=== PATIENT | male | born 1965 | race African-American/Black ===

== ENCOUNTER 2016-12-18 12:32 | Emergency (ER) | payer OTHER ==
[~2016-12-18] VITALS: Ht 188 cm; Wt 111.0 kg
[~2016-12-18 12:32] MED LIST: ADVAIR 250/501 DISK IH; ALEVE220 MG PO; AMBIEN10 MG PO; ASPIRIN E.C.81 M1 PO; Advair HFA 115/21 IH; BAYER PLUS 500500 MG; BUDEPRION SR150 MG PO; BUSPIRONE HCL10 MG PO; CHLORPROMAZINE100 MG; CHLORPROMAZINE25 MG PO; CITALOPRAM HBR20 M1 G-TUBE; CLARITIN,ALAVAR10 MG PO; CLARITIN10 M3 PO; CLARITIN10 MG PO; COUMADIN,JANTO7.5 MG PO; COUMADIN,JANTOVE5 MG PO; CYCLOBENZAPRINE10 MG PO; Coumadin dosing per PO; DEPAKOTE250 MG PO; DEPAKOTE500 MG PO; DILANTIN BRAND100 MG PO; DILANTIN100 MG PO; DIVALPROEX SOD250 MG PO; DURAGESIC25 MCG TD; FLEXERIL10 MG PO; FLONASE16 G1 BOTH NARES; FLOVENT DISKUS1 DIS2; Flonase BOTH NARES; GABAPENTIN600 MG PO; GABAPENTIN800 MG PO; HYDROCHLOROTHIA25 MG PO; Hydrodiuril,Oretic,E PO; KLONOPIN0.5 M1 PO; LIDODERM 5% P1 PATCH TD; LOPRESSOR50 MG PO; LORAZEPAM1 MG PO; LORTAB 7.5-5001 EACH PO; Lopressor PO; NASONEX17 GM NS; NORTRIPTYLINE H75 MG PO; OMEPRAZOLE20 MG PO; OXCARBAZEPINE300 MG PO; OXCARBAZEPINE600 MG PO; OXYCODONE HCL5 MG; OXYCODONE15 MG PO; OxyCODONE PO; PERI-COLACE TA1 EACH; PERI-COLACE TA1 EACH PO; PROTONIX40 MG PO; RANITIDINE HCL150 M1 PO; REQUIP1 MG PO; SENOKOT S,PE1 TABLET PO; ST JOSEPH ASPIR81 M2 PO; THERAGRAN1 TABLET PO; THORAZINE200 MG PO; TOPAMAX100 MG PO; TOPROL XL100 MG PO; TOPROL XL50 MG PO; TRAMADOL HCL100 MG PO; TRAMADOL HCL50 MG; TRAZODONE HCL100 MG PO; TYLENOL ARTHRI650 M2 PO; ULTRAM50 MG PO; VENTOLIN HFA18 GM; WELLBUTRIN SR200 MG PO; celeXA PO
[2016-12-18 13:12] LABS: HEMATOCRIT 42.8 % (38.0-50.0); MCH 27.5 PG (29.0-34.0); MCHC 31.3 G/DL (30.0-36.0); MCV 87.7 FL (86-99); MEAN PLAT.VOLUME 9.4 uM^3 (9.0-12.4); PLATELET COUNT 203 K/uL (156-360); RBC DIS.WIDTH-CV 14.6 % (11.8-14.6); RBC DIS.WIDTH-SD 47.2 % (39-53); RED BLOOD COUNT 4.88 M/uL (4.00-5.50); WHITE BLOOD COUNT 6.3 K/uL (4.1-10.2)
[2016-12-18 13:20] LABS: CHLORIDE 109 mEq/L (99-109); POTASSIUM 3.3 mEq/L (3.7-5.4); SODIUM 141 mEq/L (136-147)
[2016-12-18 13:23] LABS: GLUCOSE 96 mg/dL (70-99)
[2016-12-18 13:24] LABS: ANION GAP 8 MEQ/L (2-14); TOTAL BILIRUBIN 0.5 mg/dL (0.0-1.0)
[2016-12-18 13:26] LABS: ALKALINE PHOSPHATASE 58 IU/L (3-129); GFR ESTIMATE (CALCULATED) 55 mL/min/
[2016-12-18 13:27] LABS: UREA NITROGEN (BUN) 9 mg/dL (9-23)
[2016-12-18 13:29] LABS: CREATINE KINASE 287 IU/L (1-294); TOTAL CK 287 IU/L (1-294)
[2016-12-18 13:35] LABS: CK-MB 10.9 ng/mL (0.0-4.9)
[2016-12-18] MEDS ORDERED: DEPAKOTE500 MG PO (14:59)
[2016-12-18 15:15] VITALS: BP 109/67
[2016-12-24] MEDS ORDERED: LATUDA120 MG PO (09:53)
[2016-12-24] MEDS ORDERED: TAMSULOSIN HCL0.4 MG PO (09:54)
[2016-12-24] MEDS ORDERED: OMEPRAZOLE20 MG PO (09:55)
[2016-12-24] MEDS ORDERED: OXCARBAZEPINE600 MG PO (09:55)
[2016-12-24] MEDS ORDERED: RELAFEN750 MG PO (09:55)
[2016-12-24] MEDS ORDERED: LODINE400 MG PO (09:58)
[2016-12-24] MEDS ORDERED: HYDROCHLOROTHIA25 MG PO (09:59)
[2016-12-24] MEDS ORDERED: METOPROLOL TART75 MG PO (09:59)
[2016-12-24] MEDS ORDERED: FLEXERIL10 MG PO (10:00)
[2016-12-24] MEDS ORDERED: CLARITIN,ALAVAR10 MG PO (10:00)
[2016-12-24] MEDS ORDERED: K-DUR20 MEQ PO (13:56)
== END 2016-12-18 15:15 | disposition home or self-care (01) ==
LOC: EME 12:32
PROVIDERS: Emergency Medicine
DX: G40.909 Epilepsy, unspecified, not intractable, without status epilepticus (principal); E11.9 Type 2 diabetes mellitus without complications; I10 Essential (primary) hypertension; K21.9 Gastro-esophageal reflux disease without esophagitis; G89.29 Other chronic pain; Z98.1 Arthrodesis status; Z79.82 Long term (current) use of aspirin
CPT/HCPCS: 80053; 80164; 82550; 82553; 85027; 93005; 99281; 99285; J7030

== ENCOUNTER 2017-01-16 06:36 | Emergency (ER) | payer OTHER ==
[~2017-01-16] VITALS: Ht 188 cm; Wt 125.9 kg
[~2017-01-16 06:36] MED LIST changes: +K-DUR20 MEQ PO; +LATUDA120 MG PO; +LODINE400 MG PO; +METOPROLOL TART75 MG PO; +RELAFEN750 MG PO; +TAMSULOSIN HCL0.4 MG PO
[2017-01-16] MEDS ORDERED: DESYREL100 MG PO (06:55)
[2017-01-16] MEDS ORDERED: TRAZODONE HCL100 MG PO (07:08)
[2017-01-16] MEDS ORDERED: OXCARBAZEPINE600 MG PO (07:08)
[2017-01-16] MEDS ORDERED: WELLBUTRIN SR200 MG PO (07:08)
[2017-01-16] MEDS ORDERED: LATUDA120 MG PO (07:08)
[2017-01-16 07:31] VITALS: BP 150/92
== END 2017-01-16 07:32 | disposition home or self-care (01) ==
LOC: EME 06:36
DX: F32.89 Other specified depressive episodes (principal); Z76.0 Encounter for issue of repeat prescription; Z91.19 Patient's noncompliance with other medical treatment and regimen; I10 Essential (primary) hypertension; J45.909 Unspecified asthma, uncomplicated; Z91.040 Latex allergy status; Z88.1 Allergy status to other antibiotic agents; Z88.0 Allergy status to penicillin; Z91.09 Other allergy status, other than to drugs and biological substances
CPT/HCPCS: 99281; 99284

== ENCOUNTER 2017-01-26 23:23 | Emergency (ER) | payer OTHER ==
[~2017-01-26] VITALS: Ht 188 cm; Wt 128.0 kg
[~2017-01-26 23:23] MED LIST changes: +DESYREL100 MG PO
[2017-01-27 00:44] VITALS: BP 168/99
== END 2017-01-27 00:45 | disposition home or self-care (01) ==
LOC: EME 23:23
DX: S43.51XA Sprain of right acromioclavicular joint, initial encounter (principal); V43.63XA Car passenger injured in collision with pick-up truck in traffic accident, initial encounter
CPT/HCPCS: 73030; 99281; 99283

== ENCOUNTER 2017-02-23 17:31 | Emergency (ER) | payer OTHER ==
[~2017-02-23] VITALS: Ht 188 cm; Wt 135.8 kg
[2017-02-23 18:33] LABS: HEMATOCRIT 42.8 % (38.0-50.0); MCH 27.8 PG (29.0-34.0); MEAN PLAT.VOLUME 10.8 uM^3 (9.0-12.4); PLATELET COUNT 186 K/uL (156-360); RBC DIS.WIDTH-SD 50.7 % (39-53); RED BLOOD COUNT 4.92 M/uL (4.00-5.50); WHITE BLOOD COUNT 7.5 K/uL (4.1-10.2)
[2017-02-23 18:42] LABS: CHLORIDE 98 mEq/L (99-109); POTASSIUM 4.7 mEq/L (3.7-5.4); SODIUM 136 mEq/L (136-147)
[2017-02-23 18:44] LABS: GLUCOSE 74 mg/dL (70-99)
[2017-02-23 18:45] LABS: ANION GAP 11 MEQ/L (2-14)
[2017-02-23 18:48] LABS: GFR ESTIMATE (CALCULATED) > 59 mL/min/
[2017-02-23 18:49] LABS: UREA NITROGEN (BUN) 13 mg/dL (9-23)
[2017-02-23 18:55] LABS: TROP-I INTERPRETATION NEGATIVE; TROPONIN-I < 0.01 ng/mL (0.0-0.30)
[2017-02-23 20:53] VITALS: BP 137/92
== END 2017-02-23 20:54 | disposition home or self-care (01) ==
LOC: EME 17:31
DX: R07.89 Other chest pain (principal); H53.8 Other visual disturbances; M79.604 Pain in right leg; M79.605 Pain in left leg; T39.395A Adverse effect of other nonsteroidal anti-inflammatory drugs [NSAID], initial encounter; I10 Essential (primary) hypertension; J45.909 Unspecified asthma, uncomplicated
CPT/HCPCS: 71020; 80048; 84484; 85027; 93005; 99281; 99284

== ENCOUNTER 2017-05-22 13:16 | Emergency (ER) | payer OTHER ==
[~2017-05-22] VITALS: Ht 188 cm; Wt 134.1 kg
[2017-05-22 14:16] LABS: EOSINOPHIL (%) 0.4 % (0-5); EOSINOPHIL COUNT 0.1 K/uL (0-0.3); HEMATOCRIT 42.8 % (38.0-50.0); IMMATURE GRANULOCYTE (%) 0.4 % (0.0-0.7); IMMATURE GRANULOCYTE COUNT 0.1 K/uL; INSTRUMENT ABS NEUTROPHIL CT 8.5 K/uL; LYMPHOCYTE COUNT 3.2 K/uL (1.0-2.8); MCHC 32.7 G/DL (30.0-36.0); MCV 88.6 FL (86-99); MEAN PLAT.VOLUME 10.2 uM^3 (9.0-12.4); MONOCYTE (%) 11.2 % (3-12); MONOCYTE COUNT 1.5 K/uL (0-0.8); NEUTROPHIL (%) 63.9 % (45-76); NEUTROPHIL COUNT 8.5 K/uL (1.8-6.4); PLATELET COUNT 186 K/uL (156-360); RBC DIS.WIDTH-CV 14.5 % (11.8-14.6); RBC DIS.WIDTH-SD 46.2 % (39-53); RED BLOOD COUNT 4.83 M/uL (4.00-5.50); WHITE BLOOD COUNT 13.2 K/uL (4.1-10.2)
[2017-05-22 14:29] LABS: CHLORIDE 103 mEq/L (99-109); POTASSIUM 3.7 mEq/L (3.7-5.4); SODIUM 139 mEq/L (136-147)
[2017-05-22 14:31] LABS: GLUCOSE 86 mg/dL (70-99)
[2017-05-22 14:32] LABS: ANION GAP 12 MEQ/L (2-14)
[2017-05-22 14:34] LABS: GFR ESTIMATE (CALCULATED) 37 mL/min/
[2017-05-22 14:35] LABS: UREA NITROGEN (BUN) 29 mg/dL (9-23)
[2017-05-22 14:37] LABS: TROP-I INTERPRETATION NEGATIVE; TROPONIN-I 0.02 ng/mL (0.0-0.30)
[2017-05-22 16:07] LABS: ADD MIUA? YES; BILIRUBIN NEGATIVE; BLOOD NEGATIVE; COLOR YELLOW ((YELLOW)); GLUCOSE (STRIP) NEGATIVE; KETONES 5; LEUKOCYTES NEGATIVE; NITRITE NEGATIVE; PROTEIN (STRIP) NEGATIVE; SPECIFIC GRAVITY 1.016 (1.000-1.030); UROBILINOGEN 0.2 MG/DL (0.2-1.0)
[2017-05-22 16:17] LABS: BACTERIA RARE /HPF; EPITHELIAL CELLS RARE /HPF; HYALINE CASTS 40-50 /LPF; MUCUS 1+ /LPF; RED BLOOD CELLS 0-5 /HPF (0-5); UCUL ADDED? NO; WHITE BLOOD CELLS 0-5 /HPF (0-5)
[2017-05-22 16:22] LABS: ADD MEDTOX COMMENT Y; AMPHETAMINE NEGATIVE (500 ng/mL); BARBITURATES NEGATIVE (200 ng/mL); BENZODIAZEPINES NEGATIVE (150 ng/mL); COCAINE PRESUMPTIVE POSITIVE (150 ng/mL); INTERNAL CONTROLS VALID? YES; METHADONE NEGATIVE (200 ng/mL); METHAMPHETAMINE NEGATIVE (500 ng/mL); OPIATES (MORPHINE) NEGATIVE (100 ng/mL); OXYCODONE NEGATIVE (100 ng/mL); PHENCYCLIDINE NEGATIVE (25 ng/mL); PROPOXYPHENE NEGATIVE (300 ng/mL); THC CANNABINOIDS NEGATIVE (50 ng/mL); TRICYCLIC ANTIDEPRESSANTS NEGATIVE (300 ng/mL)
[2017-05-22 18:23] VITALS: BP 115/78
== END 2017-05-22 18:26 | disposition home or self-care (01) ==
LOC: EME 13:16
PROVIDERS: Emergency Medicine
DX: R55 Syncope and collapse (principal); R19.7 Diarrhea, unspecified; R06.02 Shortness of breath; R11.0 Nausea; R51 Headache; I10 Essential (primary) hypertension; F14.90 Cocaine use, unspecified, uncomplicated
CPT/HCPCS: 80048; 81003; 84484; 84999; 85025; 93005; 99281; 99285; J7030

== ENCOUNTER 2017-08-06 17:06 | Inpatient (IN) | payer OTHER ==
[~2017-08-06] VITALS: Ht 182.9 cm; Wt 149.6 kg
[2017-08-06 17:38] LABS: EOSINOPHIL (%) 0.3 % (0-5); EOSINOPHIL COUNT 0.1 K/uL (0-0.3); HEMATOCRIT 42.9 % (38.0-50.0); IMMATURE GRANULOCYTE (%) 0.6 % (0.0-0.7); IMMATURE GRANULOCYTE COUNT 0.1 K/uL; INSTRUMENT ABS NEUTROPHIL CT 9.7 K/uL; LYMPHOCYTE COUNT 3.4 K/uL (1.0-2.8); MCH 29.6 PG (29.0-34.0); MCHC 30.5 G/DL (30.0-36.0); MONOCYTE (%) 12.3 % (3-12); MONOCYTE COUNT 1.9 K/uL (0-0.8); NEUTROPHIL (%) 64.3 % (45-76); NEUTROPHIL COUNT 9.7 K/uL (1.8-6.4); NRBC (%) 0.1 /100 WBC (0-0); PLATELET COUNT 188 K/uL (156-360); RBC DIS.WIDTH-CV 15.3 % (11.8-14.6); RBC DIS.WIDTH-SD 54.7 % (39-53); RED BLOOD COUNT 4.43 M/uL (4.00-5.50); WHITE BLOOD COUNT 15.1 K/uL (4.1-10.2)
[2017-08-06 17:40] LABS: MCV 96.8 FL (86-99)
[2017-08-06 17:54] LABS: CHLORIDE 104 mEq/L (99-109); POTASSIUM 4.8 mEq/L (3.7-5.4); SODIUM 135 mEq/L (136-147)
[2017-08-06 17:57] LABS: GLUCOSE 91 mg/dL (70-99)
[2017-08-06 17:58] LABS: ANION GAP 17 MEQ/L (2-14); TOTAL BILIRUBIN 0.7 mg/dL (0.0-1.0)
[2017-08-06 17:59] LABS: SERUM ETHYL ALCOHOL < 10 mg/dL
[2017-08-06 18:00] LABS: GFR ESTIMATE (CALCULATED) 19 mL/min/
[2017-08-06 18:01] LABS: ALKALINE PHOSPHATASE 65 IU/L (3-129)
[2017-08-06 18:03] LABS: SALICYLATE < 5.0 MG/DL (15-30)
[2017-08-06 18:26] LABS: UREA NITROGEN (BUN) 22 mg/dL (9-23)
[2017-08-06 19:13] LABS: ADD MIUA? NO; BILIRUBIN NEGATIVE; BLOOD NEGATIVE; COLOR YELLOW ((YELLOW)); GLUCOSE (STRIP) NEGATIVE; KETONES NEGATIVE; LEUKOCYTES NEGATIVE; NITRITE NEGATIVE; PROTEIN (STRIP) NEGATIVE; SPECIFIC GRAVITY 1.015 (1.000-1.030)
[2017-08-06 19:23] LABS: AMPHETAMINE NEGATIVE (500 ng/mL); BARBITURATES NEGATIVE (200 ng/mL); BENZODIAZEPINES NEGATIVE (150 ng/mL); COCAINE NEGATIVE (150 ng/mL); INTERNAL CONTROLS VALID? YES; METHADONE NEGATIVE (200 ng/mL); METHAMPHETAMINE NEGATIVE (500 ng/mL); OPIATES (MORPHINE) NEGATIVE (100 ng/mL); OXYCODONE NEGATIVE (100 ng/mL); PHENCYCLIDINE NEGATIVE (25 ng/mL); PROPOXYPHENE NEGATIVE (300 ng/mL); THC CANNABINOIDS NEGATIVE (50 ng/mL); TRICYCLIC ANTIDEPRESSANTS NEGATIVE (300 ng/mL)
[2017-08-07] VITALS (7 sets, daily range): BP systolic 97–156; BP diastolic 57–91
[2017-08-07 06:08] LABS: HEMATOCRIT 37.7 % (38.0-50.0); MCH 29.9 PG (29.0-34.0); MCHC 30.8 G/DL (30.0-36.0); MCV 97.2 FL (86-99); MEAN PLAT.VOLUME 10.2 uM^3 (9.0-12.4); PLATELET COUNT 151 K/uL (156-360); RBC DIS.WIDTH-CV 15.5 % (11.8-14.6); RBC DIS.WIDTH-SD 55.1 % (39-53); RED BLOOD COUNT 3.88 M/uL (4.00-5.50); WHITE BLOOD COUNT 11.8 K/uL (4.1-10.2)
[2017-08-07 06:22] LABS: ANION GAP 9 MEQ/L (2-14); CHLORIDE 103 MEQ/L (99-109); GLUCOSE 95 mg/dL (70-99); POTASSIUM 4.6 MEQ/L (3.7-5.4); SAMPLE HEMOLYSIS CHECK 0; SAMPLE ICTERIC CHECK 0; SAMPLE LIPEMIA CHECK 0; SODIUM 137 MEQ/L (136-147); UREA NITROGEN (BUN) 28 mg/dL (9-23)
[2017-08-07 06:47] LABS: GFR ESTIMATE (CALCULATED) 15 mL/min/
[2017-08-07 08:12] LABS: BASE EXCESS -1.4 mEq/L (-3 to +3); BICARBONATE 26.5 mEq/L (22-26); CARBOXY HGB 2.8 % (0-5); COMMENTS - BLOOD GASES A+C; DEVICE NC; O2 FLOW 2 L/MIN; PCO2 59 mm Hg (35-45); PO2 91 mm Hg (80-100); SITE LR; TOTAL RESP RATE 12 resp/min; pH 7.26 (7.35-7.45)
[2017-08-07 09:06] LABS: MAGNESIUM 2.3 mg/dl (1.3-2.7)
[2017-08-07] MEDS ORDERED: LITHOBID300 MG PO (09:35)
[2017-08-07] MEDS ORDERED: TRILEPTAL600 MG PO (09:36)
[2017-08-07] MEDS ORDERED: AMBIEN10 MG PO (09:36)
[2017-08-07] MEDS ORDERED: WELLBUTRIN XL150 MG PO (09:37)
[2017-08-07] MEDS ORDERED: LATUDA120 MG PO (09:38)
[2017-08-07 10:44] LABS: BASE EXCESS -2.8 mEq/L (-3 to +3); CARBOXY HGB 2.9 % (0-5); METHEMOGLOBIN 1.5 % (0-1.5); PCO2 57 mm Hg (35-45)
[2017-08-07 10:47] LABS: COMMENTS - BLOOD GASES A+C+; PO2 57 mm Hg (80-100); SITE RR
[2017-08-07 10:48] LABS: DEVICE NC; O2 FLOW 2 L/MIN; TOTAL RESP RATE 12 resp/min; pH 7.25 (7.35-7.45)
[2017-08-08 04:13] VITALS: BP 131/92
[2017-08-08 05:59] LABS: EOSINOPHIL (%) 1.3 % (0-5); EOSINOPHIL COUNT 0.1 K/uL (0-0.3); HEMATOCRIT 37.1 % (38.0-50.0); IMMATURE GRANULOCYTE (%) 0.5 % (0.0-0.7); INSTRUMENT ABS NEUTROPHIL CT 4.8 K/uL; LYMPHOCYTE COUNT 2.1 K/uL (1.0-2.8); MCH 29.3 PG (29.0-34.0); MCV 94.6 FL (86-99); MEAN PLAT.VOLUME 10.1 uM^3 (9.0-12.4); MONOCYTE (%) 15.5 % (3-12); MONOCYTE COUNT 1.3 K/uL (0-0.8); NEUTROPHIL (%) 57.3 % (45-76); NEUTROPHIL COUNT 4.8 K/uL (1.8-6.4); NRBC (%) 0.2 /100 WBC (0-0); PLATELET COUNT 125 K/uL (156-360); RBC DIS.WIDTH-CV 14.6 % (11.8-14.6); RBC DIS.WIDTH-SD 50.7 % (39-53); RED BLOOD COUNT 3.92 M/uL (4.00-5.50); WHITE BLOOD COUNT 8.5 K/uL (4.1-10.2)
[2017-08-08 06:09] VITALS: BP 131/92
[2017-08-08 06:25] LABS: ANION GAP 10 MEQ/L (2-14); CHLORIDE 103 MEQ/L (99-109); GFR ESTIMATE (CALCULATED) 26 mL/min/; GLUCOSE 94 mg/dL (70-99); POTASSIUM 4.2 MEQ/L (3.7-5.4); SAMPLE HEMOLYSIS CHECK 0; SAMPLE ICTERIC CHECK 0; SAMPLE LIPEMIA CHECK 0; SODIUM 140 MEQ/L (136-147); UREA NITROGEN (BUN) 20 mg/dL (9-23)
[2017-08-08 07:57] VITALS: BP 140/70
[2017-08-08 09:51] LABS: HBSG INDEX 0.15
[2017-08-08 09:52] LABS: AHBS INDEX 548.21
[2017-08-08 09:54] LABS: HEPATITIS B SURFACE ANTIBODY REACTIVE
[2017-08-08 10:13] LABS: ANTI-HEPATITIS B CORE (TOTAL) REACTIVE; HBCT INDEX 8.04
[2017-08-08] MEDS ORDERED: CYCLOBENZAPRINE10 MG PO (11:25)
[2017-08-08] MEDS ORDERED: LOPRESSOR50 MG PO (11:26)
[2017-08-08] MEDS ORDERED: HYDROCHLOROTHIA25 MG PO (11:26)
[2017-08-08] MEDS ORDERED: ENALAPRIL MALEA10 MG PO (11:27)
[2017-08-08] MEDS ORDERED: GABAPENTIN800 MG PO (11:28)
[2017-08-08] MEDS ORDERED: DEPAKOTE500 MG PO (11:28)
[2017-08-08] MEDS ORDERED: LODINE400 MG PO (11:29)
[2017-08-08] MEDS ORDERED: MORPHINE SULFAT15 M1 PO (11:29)
[2017-08-08] MEDS ORDERED: BENZTROPINE MESY1 MG PO (11:30)
[2017-08-08] MEDS ORDERED: MIRALAX17 GM PO (11:30)
[2017-08-08] MEDS ORDERED: SYMBICORT60 INHALAT IH (11:31)
[2017-08-08] MEDS ORDERED: VENTOLIN HFA18 GM IH (11:31)
[2017-08-08] MEDS ORDERED: ZUBSOLV 1.4-0.1 EACH SL (11:33)
[2017-08-08 11:38] LABS: ANTI-HEPATITIS B CORE (IGM) Nonreactive
[2017-08-08 11:43] VITALS: BP 137/74
[2017-08-08 16:40] VITALS: BP 160/70
[2017-08-08 20:15] VITALS: BP 160/98
[2017-08-09 00:13] VITALS: BP 167/97
[2017-08-09 04:14] VITALS: BP 167/92
[2017-08-09 05:41] VITALS: BP 167/92
[2017-08-09 06:10] LABS: EOSINOPHIL COUNT 0.1 K/uL (0-0.3); HEMATOCRIT 34.1 % (38.0-50.0); IMMATURE GRANULOCYTE (%) 0.3 % (0.0-0.7); INSTRUMENT ABS NEUTROPHIL CT 3.3 K/uL; LYMPHOCYTE COUNT 2.2 K/uL (1.0-2.8); MCH 29.8 PG (29.0-34.0); MCHC 32.3 G/DL (30.0-36.0); MCV 92.4 FL (86-99); MEAN PLAT.VOLUME 10.3 uM^3 (9.0-12.4); MONOCYTE (%) 15.5 % (3-12); NEUTROPHIL (%) 49.3 % (45-76); NEUTROPHIL COUNT 3.3 K/uL (1.8-6.4); PLATELET COUNT 123 K/uL (156-360); RBC DIS.WIDTH-CV 14.3 % (11.8-14.6); RBC DIS.WIDTH-SD 48.4 % (39-53); RED BLOOD COUNT 3.69 M/uL (4.00-5.50); WHITE BLOOD COUNT 6.7 K/uL (4.1-10.2)
[2017-08-09 06:36] LABS: ANION GAP 7 MEQ/L (2-14); CHLORIDE 104 MEQ/L (99-109); GFR ESTIMATE (CALCULATED) 55 mL/min/; GLUCOSE 104 mg/dL (70-99); POTASSIUM 3.6 MEQ/L (3.7-5.4); SAMPLE HEMOLYSIS CHECK 0; SAMPLE ICTERIC CHECK 0; SAMPLE LIPEMIA CHECK 0; SODIUM 141 MEQ/L (136-147); UREA NITROGEN (BUN) 11 mg/dL (9-23)
[2017-08-09 06:59] VITALS: BP 139/84
[2017-08-09 15:12] VITALS: BP 156/97
[2017-08-09 23:24] VITALS: BP 129/89
[2017-08-10 06:01] LABS: EOSINOPHIL (%) 1.7 % (0-5); EOSINOPHIL COUNT 0.1 K/uL (0-0.3); HEMATOCRIT 33.5 % (38.0-50.0); IMMATURE GRANULOCYTE (%) 0.3 % (0.0-0.7); INSTRUMENT ABS NEUTROPHIL CT 3.6 K/uL; LYMPHOCYTE COUNT 2.4 K/uL (1.0-2.8); MCH 29.9 PG (29.0-34.0); MCHC 32.5 G/DL (30.0-36.0); MEAN PLAT.VOLUME 10.4 uM^3 (9.0-12.4); MONOCYTE (%) 11.1 % (3-12); MONOCYTE COUNT 0.8 K/uL (0-0.8); NEUTROPHIL (%) 52.5 % (45-76); NEUTROPHIL COUNT 3.6 K/uL (1.8-6.4); PLATELET COUNT 132 K/uL (156-360); RBC DIS.WIDTH-CV 14.4 % (11.8-14.6); RBC DIS.WIDTH-SD 48.4 % (39-53); RED BLOOD COUNT 3.64 M/uL (4.00-5.50); WHITE BLOOD COUNT 6.9 K/uL (4.1-10.2)
[2017-08-10 06:26] LABS: ANION GAP 8 MEQ/L (2-14); CHLORIDE 106 MEQ/L (99-109); GFR ESTIMATE (CALCULATED) > 59 mL/min/; GLUCOSE 100 mg/dL (70-99); POTASSIUM 3.8 MEQ/L (3.7-5.4); SAMPLE HEMOLYSIS CHECK 0; SAMPLE ICTERIC CHECK 0; SAMPLE LIPEMIA CHECK 0; SODIUM 141 MEQ/L (136-147); UREA NITROGEN (BUN) 7 mg/dL (9-23)
[2017-08-10 06:48] VITALS: BP 152/91
[2017-08-10 08:38] LABS: ALKALINE PHOSPHATASE 43 IU/L (3-129); DIRECT BILIRUBIN 0.1 mg/dL (0.0-0.3); TOTAL BILIRUBIN 0.5 MG/DL (0.0-1.0)
[2017-08-10 15:30] VITALS: BP 150/82
[2017-08-10 23:27] VITALS: BP 156/90
[2017-08-11 05:42] LABS: EOSINOPHIL (%) 1.8 % (0-5); EOSINOPHIL COUNT 0.1 K/uL (0-0.3); HEMATOCRIT 33.8 % (38.0-50.0); IMMATURE GRANULOCYTE (%) 0.3 % (0.0-0.7); INSTRUMENT ABS NEUTROPHIL CT 3.7 K/uL; LYMPHOCYTE COUNT 2.2 K/uL (1.0-2.8); MCHC 33.1 G/DL (30.0-36.0); MCV 90.6 FL (86-99); MEAN PLAT.VOLUME 9.8 uM^3 (9.0-12.4); MONOCYTE (%) 11.6 % (3-12); MONOCYTE COUNT 0.8 K/uL (0-0.8); NEUTROPHIL (%) 54.2 % (45-76); NEUTROPHIL COUNT 3.7 K/uL (1.8-6.4); PLATELET COUNT 132 K/uL (156-360); RBC DIS.WIDTH-CV 14.2 % (11.8-14.6); RBC DIS.WIDTH-SD 46.7 % (39-53); RED BLOOD COUNT 3.73 M/uL (4.00-5.50); WHITE BLOOD COUNT 6.8 K/uL (4.1-10.2)
[2017-08-11 06:30] LABS: ANION GAP 8 MEQ/L (2-14); CHLORIDE 104 MEQ/L (99-109); GFR ESTIMATE (CALCULATED) > 59 mL/min/; GLUCOSE 84 mg/dL (70-99); POTASSIUM 3.7 MEQ/L (3.7-5.4); SAMPLE HEMOLYSIS CHECK 0; SAMPLE ICTERIC CHECK 0; SAMPLE LIPEMIA CHECK 0; SODIUM 139 MEQ/L (136-147); UREA NITROGEN (BUN) 9 mg/dL (9-23)
[2017-08-11 07:50] VITALS: BP 138/74
== END 2017-08-11 11:40 | disposition home or self-care (01) | DRG 682 ==
LOC: EME 17:06 → 5EAST 22:41 → EDOF 22:41 → ENRESERV 22:43 → 5EAST 08-07 01:08 → ENPENDDIS 08-11 → 5EAST 08-11 11:40 → EDPENDDISTM 08-11 11:40
PROVIDERS: Emergency Medicine; Hospitalist; Internal Medicine; Internal Medicine Nephrology
PROC: 02HV33Z Insertion of Infusion Device into Superior Vena Cava, Percutaneous Approach (ICD-10-PCS; principal; 2017-08-07)
PROC: 5A1D70Z Performance of Urinary Filtration, Intermittent, Less than 6 Hours Per Day (ICD-10-PCS; 2017-08-07)
DX: N17.9 Acute kidney failure, unspecified (principal); G93.41 Metabolic encephalopathy; G47.33 Obstructive sleep apnea (adult) (pediatric); G40.909 Epilepsy, unspecified, not intractable, without status epilepticus; E66.9 Obesity, unspecified; Z68.41 Body mass index [BMI] 40.0-44.9, adult; E87.2 Acidosis; F31.9 Bipolar disorder, unspecified; I10 Essential (primary) hypertension; I95.9 Hypotension, unspecified; R06.89 Other abnormalities of breathing; R09.02 Hypoxemia; E83.39 Other disorders of phosphorus metabolism; K21.9 Gastro-esophageal reflux disease without esophagitis
CPT/HCPCS: 36415; 36600; 70450; 71010; 76770; 80048; 80053; 80069; 80076; 80164; 80178; 81003; 82140; 82803; 83605; 83735; 84100; 85025; 85027; 86704; 86705; 86706; 86803; 87040; 87340; 94640; 94640 76; 94660; 94799; 99202; 99281; 99285; C1751; C1752; G0480; J1644; J2405; J7030; J7040; J7042; S0028

== ENCOUNTER 2017-11-12 09:37 | Emergency (ER) | payer OTHER ==
[~2017-11-12] VITALS: Ht 188 cm; Wt 124.5 kg
[~2017-11-12 09:37] MED LIST changes: +BENZTROPINE MESY1 MG PO; +ENALAPRIL MALEA10 MG PO; +LITHOBID300 MG PO; +MIRALAX17 GM PO; +MORPHINE SULFAT15 M1 PO; +SYMBICORT60 INHALAT IH; +TRILEPTAL600 MG PO; +VENTOLIN HFA18 GM IH; +WELLBUTRIN XL150 MG PO; +ZUBSOLV 1.4-0.1 EACH SL
[2017-11-12] MEDS ORDERED: SENNA8.6 MG PO (10:22)
[2017-11-12] MEDS ORDERED: COLACE100 MG PO (10:22)
[2017-11-12] MEDS ORDERED: DULCOLAX10 MG PR (10:22)
[2017-11-12 10:39] VITALS: BP 121/76
== END 2017-11-12 10:43 | disposition home or self-care (01) ==
LOC: EME 09:37
DX: K59.03 Drug induced constipation (principal); T40.2X5A Adverse effect of other opioids, initial encounter; G89.29 Other chronic pain; Z79.891 Long term (current) use of opiate analgesic; I10 Essential (primary) hypertension; J45.909 Unspecified asthma, uncomplicated
CPT/HCPCS: 99281; 99284

== ENCOUNTER 2017-11-14 10:31 | Emergency (ER) | payer OTHER ==
[~2017-11-14] VITALS: Ht 188 cm; Wt 119.6 kg
[~2017-11-14 10:31] MED LIST changes: +COLACE100 MG PO; +DULCOLAX10 MG PR; +SENNA8.6 MG PO
[2017-11-14 13:13] LABS: BASOPHIL (%) 0.3 % (0-1); EOSINOPHIL (%) 0.5 % (0-5); HEMATOCRIT 37.3 % (38.0-50.0); HEMOGLOBIN 12.5 G/DL (12.5-16.6); IMMATURE GRANULOCYTE (%) 0.2 % (0.0-0.7); LYMPHOCYTE (%) 38.9 % (15-42); LYMPHOCYTE COUNT 2.3 K/uL (1.0-2.8); MCH 28.4 PG (29.0-34.0); MCHC 33.5 G/DL (30.0-36.0); MCV 84.8 FL (86-99); MONOCYTE (%) 13.6 % (3-12); MONOCYTE COUNT 0.8 K/uL (0-0.8); NEUTROPHIL (%) 46.5 % (45-76); NEUTROPHIL COUNT 2.7 K/uL (1.8-6.4); PLATELET COUNT 152 K/uL (156-360); RBC DIS.WIDTH-CV 13.2 % (11.8-14.6); RBC DIS.WIDTH-SD 40.9 % (39-53); WHITE BLOOD COUNT 5.8 K/uL (4.1-10.2)
[2017-11-14 13:26] LABS: ALBUMIN 3.9 g/dL (3.2-4.8); CHLORIDE 96 mEq/L (99-109)
[2017-11-14 13:27] LABS: SODIUM 138 mEq/L (136-147)
[2017-11-14 13:29] LABS: GLUCOSE 84 mg/dL (70-99); TOTAL PROTEIN 7.4 g/dL (6.4-8.3)
[2017-11-14 13:31] LABS: TOTAL BILIRUBIN 0.7 mg/dL (0.0-1.0)
[2017-11-14 13:32] LABS: ALKALINE PHOSPHATASE 51 IU/L (3-129); CREATININE 1.6 mg/dL (0.6-1.3); GFR ESTIMATE (CALCULATED) 59 mL/min/ (58.99-99999)
[2017-11-14 13:34] LABS: AST (GOT) 27 IU/L (2-34); UREA NITROGEN (BUN) 26 mg/dL (9-23)
[2017-11-14 13:35] LABS: ALT (GPT) 13 IU/L (3-49)
[2017-11-14 13:36] LABS: LIPASE 10 U/L (1.0-51.0)
[2017-11-14 13:38] LABS: TROP-I INTERPRETATION NEGATIVE; TROPONIN-I 0.02 ng/mL (0.0-0.30)
[2017-11-14 15:10] LABS: VALPROIC ACID (DEPAKOTE) 51.2 MCG/ML (50-100)
[2017-11-14 15:48] LABS: APPEARANCE SL.HAZY ((CLEAR)); BILIRUBIN NEGATIVE; BLOOD NEGATIVE; COLOR AMBER ((YELLOW)); GLUCOSE (STRIP) NEGATIVE; KETONES 20; LEUKOCYTES NEGATIVE; NITRITE NEGATIVE; PROTEIN (STRIP) 30; SPECIFIC GRAVITY 1.028 (1.000-1.030)
[2017-11-14 15:56] LABS: BACTERIA NONE SEEN /HPF; EPITHELIAL CELLS RARE /HPF; MUCUS 1+ /LPF; RED BLOOD CELLS 0-5 /HPF (0-5); UCUL ADDED? NO; WHITE BLOOD CELLS 0-5 /HPF (0-5)
[2017-11-14] MEDS ORDERED: ZOFRAN4 MG PO (17:42)
[2017-11-14 18:39] VITALS: BP 125/76
== END 2017-11-14 18:46 | disposition home or self-care (01) ==
LOC: EME 10:31
PROVIDERS: Emergency Medicine
DX: K59.00 Constipation, unspecified (principal); E86.0 Dehydration; E87.6 Hypokalemia; I10 Essential (primary) hypertension; J45.909 Unspecified asthma, uncomplicated; G25.81 Restless legs syndrome; G47.30 Sleep apnea, unspecified; F32.9 Major depressive disorder, single episode, unspecified; F20.9 Schizophrenia, unspecified; Z88.0 Allergy status to penicillin; Z88.1 Allergy status to other antibiotic agents; Z91.040 Latex allergy status
CPT/HCPCS: 74019; 80053; 80164; 81003; 83690; 84484; 85025; 93005; 99281; 99285; J7030